=== PATIENT | female | born 1965 | race Hispanic/Latino ===

== ENCOUNTER → 2022-09-03 | Day surgery (SDC) | payer SELFPAY ==
[~2022-09-03] MED LIST: ASPIRIN EC81 MG PO; ATORVASTATIN CA20 MG PO; COLLAGEN 15001 EACH PO; CYCLOPENTOLATE HCL 1% OPTH SOLN 2ML BTL ONE; FENTANYL CITRATE/PF 100MCG/2 ML INJ ONE; GINKGO BILOBA40 M1 PO; LACTATED RINGER'S 1,000 ML ONE; MIDAZOLAM HCL 2 MG/2 ML VIAL ONE; MOXIFLOXACIN HCL(OPTH) 3 ML BTL ONE; MULTI-VITAMIN1 EACH PO; ONDANSETRON HCL INJ 2MG/ML 2ML 2 MG/ML VIAL ONE; OR PHACO EYE KIT ONE; PHENYLEPHRINE HCL 10% 5 ML OPTH SOLN ONE; POVIDONE IODINE 0.05% 0.05 % ML PO ONE; TROPICAMIDE 1% OPTH SOLN 15 ML BTL ONE
[2022-09-03 13:25] VITALS: BP 123/76
== END | disposition home or self-care (01) ==
LOC: OR 09:47
PROVIDERS: ATTEND Ophthalmology
DX: H52.01 Hypermetropia, right eye (principal); H52.201 Unspecified astigmatism, right eye; E78.5 Hyperlipidemia, unspecified; Z79.899 Other long term (current) drug therapy
CPT/HCPCS: 66984; J2250; J2405; J3010; J7121; V2788

== ENCOUNTER → 2022-09-10 | Day surgery (SDC) | payer SELFPAY ==
[~2022-09-10] MED LIST changes: -ONDANSETRON HCL INJ 2MG/ML 2ML 2 MG/ML VIAL ONE; -POVIDONE IODINE 0.05% 0.05 % ML PO ONE
[2022-09-10 13:26] VITALS: TEMP 97.8
[2022-09-10 13:40] VITALS: BP 115/77; PULSE 64; RESP 16; O2SAT 99
== END | disposition home or self-care (01) ==
LOC: OR 10:35
PROVIDERS: ATTEND Ophthalmology
DX: H50.22 Vertical strabismus, left eye (principal); H52.202 Unspecified astigmatism, left eye; Z79.82 Long term (current) use of aspirin; Z79.899 Other long term (current) drug therapy
CPT/HCPCS: 66984; J2250; J3010; J7121